=== PATIENT | male | born 1990 | race Caucasian/White ===

== ENCOUNTER → 2021-12-16 07:04 | Outpatient (CLI) | payer OTHER, MEDICAID, SELFPAY ==
[2021-12-16 08:32] LABS: Alanine Aminotransferase 43 IU/L (<50); Albumin 4.6 g/dL (3.5-5.0); Albumin Globulin Ratio 1.9 (1.0-2.8); Alkaline Phosphatase 53 U/L (38-126); Aspartate Aminotransferase 37 IU/L (17-59); BUN Creatinine Ratio 19.5 (6-22); Bilirubin Total 0.3 mg/dL (0.2-1.3); Blood Urea Nitrogen 17 mg/dL (9-20); Calcium 9.5 mg/dL (8.4-10.2); Carbon Dioxide 31 mmol/L (22-32); Chloride 103 mmol/L (98-107); Estimated Glomerular Filt Rate > 60.0 mL/min (>60); Globulin 2.4 g/dL (1.7-4.1); Glucose 103 mg/dL (70-100); HEMOLYSIS < 15 (0-50); Potassium 4.5 mmol/L (3.4-5.1); Sodium 141 mmol/L (137-145)
[2021-12-16 08:53] LABS: Vitamin D 25 Hydroxy (D3) 35.2 ng/mL (30.0-100.0)
[2021-12-16 09:00] LABS: TSH w/ Reflex to FT4 1.06 uIU/mL (0.47-4.68)
[2021-12-16 09:12] LABS: Add Manual Diff / Slide Review NO; Basophils Absolute Auto 100 /uL (0-100); Basophils Percent Auto 0.9 % (0-2); Eosinophils Absolute Auto 400 /uL (0-450); Eosinophils Percent Auto 6.2 % (2-4); Hematocrit 44.2 % (41-53); Hemoglobin 15.1 g/dL (13.5-17.5); Lymphocytes Absolute Auto 2600 /uL (1100-4500); Lymphocytes Percent Auto 36.9 % (25-40); Mean Corpuscular HGB Conc 34.2 % (30-36); Mean Corpuscular Hemoglobin 31.3 PG (26-34); Mean Corpuscular Volume 91.5 fL (80-100); Monocytes Absolute Auto 500 /uL (0-900); Monocytes Percent Auto 7.3 % (3-14); Neutrophils Absolute Auto 3400 /uL (1500-7000); Neutrophils Percent Auto 48.7 % (50-75); Platelet Count 262 X10^3/uL (150-400); Red Blood Cell Count 4.83 X10^6/uL (4.5-5.9); Red Cell Distribution Width 12.7 % (11.6-14.8)
== END ==
PROVIDERS: PCP Family Medicine; Referring Provider Family Medicine; Visit Provider Family Medicine
DX: F32.A Depression, unspecified (principal); M25.50 Pain in unspecified joint; T78.40XS Allergy, unspecified, sequela
CPT/HCPCS: 36415; 80053; 82306; 84443; 85025

== ENCOUNTER 2022-01-05 20:25 | Emergency (ER) | payer OTHER, MEDICAID, SELFPAY ==
[2022-01-05 20:30] VITALS: BP 123/79; PULSE 59; RESP 18; TEMP 36.9; O2SAT 100
[2022-01-05] MEDS: ONDANSETRON 4 MG ODT PREPACK 1 BOTTLE MISC (20:43)
[2022-01-05] MEDS: LIDOCAINE 1% W/EPI 30 ML (20:44)
--- NOTE | 2022-01-05 22:02 | ED.HEATRA ---
HPI - Head Injury General Chief complaint: Head Injury Stated complaint: head injury Time Seen by Provider: 01/05/22 20:33 Source: patient Mode of arrival: Ambulatory History of Present Illness HPI Narrative: 31-year-old male nonsmoker with history of asthma presents with significant other and a chief complaint of an accidental head injury with scalp laceration just prior to arrival. 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 He denies loss of consciousness but states he definitely was seeing stars and was close. He is nauseated but denies any vomiting. He denies any blurred vision or trouble with speech. He has no ambulation difficulties. He is not under the influence of alcohol or street drugs and takes no blood thinners. His tetanus is current, he is otherwise well and free of complaint Related Data Previous Rx's Medication Instructions Recorded epinephrine 0.3 mg/0.3 mL 0.3 mg (0.3 mL) IM Q5-15M PRN #2 ea 11/04/20 injection, auto-injector (EpiPen 2-Max) montelukast 10 mg tablet 10 mg PO BEDTIME #90 tab 03/29/21 (Singulair) albuterol sulfate 90 mcg/actuation 2 puff INHALATION QID PRN #3 07/05/21 aerosol inhaler inhalation sertraline 50 mg tablet (Zoloft) 50 mg PO DAILY #60 tab 12/17/21 Allergies Allergy/AdvReac Type Severity Reaction Status Date / Time No Known Drug Allergies Allergy Verified 03/29/21 14:21 seasonal Allergy Intermediate UR sx Uncoded 03/29/21 14:21 Review of Systems Review of Systems Narrative: GENERAL: Denies chills, fatigue, malaise, fever, sweats. HEENT: Denies sinus pain, ear pain, sore throat, difficulty swallowing, dizziness. RESPIRATORY: Denies dyspnea, cough, wheezing, hemoptysis, sputum. CARDIOVASCULAR: Denies chest pain, palpitations, orthopnea, edema, GASTROINTESTINAL: Denies nausea, vomiting, abdominal pain, diarrhea, constipation, melena. : Denies dysuria, frequency, incontinence, hematuria, urinary retention. MUSCULOSKELETAL: denies weakness, joint pain, or bony pain SKIN: See HPI NEUROLOGIC: See HPI PSYCHIATRIC: No concerning psychosocial issues. 12 point review of systems is negative except for those stated above Patient History Medical History Allergies Asthma Eczema External hemorrhoid Family History Father Asthma Social History marital status: unmarried,single household members: friend(s) lives independently: No housing: house education level: high school occupational status: employed leisure activities: exercise and fishing seatbelt use: always working smoke detector in home: Yes fire extinguisher in home: Yes carbon monox detector in home: Yes Smoking Status: Never smoker during the past year weight has: remained stable daily servings fruits/ve or more times/day Type(s) of exercise: walking and irregular exercise frequency: 3-4 times per week duration: > 90 minutes/day Smoking Status: Never smoker Exam Narrative Exam Narrative: GENERAL: [31] year old patient appears stated age. Well-developed patient, in mild distress. GCS 15 HEAD: 3 cm superficial linear laceration in the midline on top of his head with minimal active bleeding. There is no evidence of depressed skull fracture. There is no evidence of foreign body or contamination EYES: Pupils equal round and reactive. Extraocular motions intact. No scleral icterus. No injection or drainage. ENT: Nose without bleeding, purulent drainage. Throat without erythema, tonsillar hypertrophy or exudate. Airway patent. NECK: Trachea midline. Non tender CARDIOVASCULAR: Regular rate and rhythm without murmurs, gallops, or rubs. RESPIRATORY: Clear to auscultation. Breath sounds equal bilaterally. No wheezes, rales, or rhonchi. GASTROINTESTINAL: Abdomen soft, non-tender, nondistended. EXTREMITIES: No edema or joint tenderness. BACK: Nontender without deformity or crepitance. No flank tenderness. NEURO: AOx3. SKIN: No rash or erythema of visible areas Initial Vital Signs Initial Vital Signs: Vital Signs Temperature 98.4 F 01/05/22 20:30 Pulse Rate 59 L 01/05/22 20:30 Respiratory Rate 18 01/05/22 20:30 Blood Pressure 123/79 01/05/22 20:30 Pulse Oximetry 100 01/05/22 20:30 Procedures Laceration Repair Laceration 1: Site: scalp Description: linear Depth: simple, single layer Local Anesthetic: lidocaine 1% Amount of anesthesia used (mL): 4 Pre-repair: wound explored and irrigated extensively Skin layer closed with: janee Course Orders Ordered: Discontinued Medications Ondansetron HCl (Ondansetron 4 Mg Odt Prepack) 1 bottle [facility] [place] [facility] ONE Stop: 01/05/22 20:39 Last Admin: 01/05/22 20:43 Dose: 1 bottle Documented by: APURVA Vital Signs Vital signs: Vital Signs - 8 hr 01/05/22 20:30 Temperature 98.4 F Pulse Rate 59 L Respiratory Rate 18 Blood Pressure 123/79 Pulse Oximetry 100 Discharge Plan Departure Patient Disposition: Home Clinical Impression: Laceration of scalp, Concussion Instructions: Concussion, DI for Laceration Repair of the Scalp Activity Restrictions/Additional Instructions: *You have been diagnosed with [scalp laceration and mild concussion. As we discussed her history and physical exam are reassuring and there is no indication for a CT scan of your brain *What to do: *Please continue to take your regular medications as directed. [ ] New medication prescriptions sent to your pharmacy: [ ] [ ] New medication written as a paper prescription [ x] No new medications given Please keep the wound clean and dry to the best of your ability. Please monitor for signs of infection such as redness to the skin or increasing pain. Have the sutures/janee removed by your doctor in about 7 days. If you are unable to get into your doctor, we would be happy to remove the sutures/janee in that same timeframe. You have a slight concussion and will likely have a mild headache and some nausea for a few days. Avoiding highly stimulating activities and even TV or computers may be helpful in minimizing your symptoms. Avoid activities that will put you at risk for another head injury for at least a week. You can take tylenol or motrin for headache or the prescription provided for nausea/vomiting. Return for worsening or persistent symptoms *If you do not have a primary care provider please contact the [facility] Resource line at [phone]. They will ask some questions about your medical history and help get you set up with a doctor in the community. *Return to Emergency Department if you should have any new, worsening or concerning symptoms, such as [fever greater than 101 F, shaking chills, worsening pain, persistent vomiting or other bothersome symptoms] Prescriptions: No Action albuterol sulfate 90 mcg/actuation HFA aerosol inhaler 2 puff INHALATION QID PRN (Reason: shortness of breath or wheezing) Qty: 3 3RF epinephrine [EpiPen 2-Max] 0.3 mg/0.3 mL auto-injector 0.3 mg IM Q5-15M PRN (Reason: anaphylaxis) Qty: 2 0RF Rx Instructions: do not exceed 3 doses per episode montelukast [Singulair] 10 mg tablet 10 mg PO BEDTIME Qty: 90 3RF Rx Instructions: Use during allergy season sertraline [Zoloft] 50 mg tablet 50 mg PO DAILY Qty: 60 0RF Referrals: Maikol Paniagua MD [Primary Care Provider] -
== END 2022-01-05 21:10 | disposition home or self-care (01) ==
PROVIDERS: Emergency Provider Emergency Medicine; PCP Family Medicine
DX: S01.01XA Laceration without foreign body of scalp, initial encounter (principal); S06.0X0A Concussion without loss of consciousness, initial encounter; W22.8XXA Striking against or struck by other objects, initial encounter
CPT/HCPCS: 12001; 99281; 99283

== ENCOUNTER → 2024-08-15 16:03 | Outpatient (CLI) | payer OTHER, MEDICAID, SELFPAY ==
[2024-08-15 16:58] LABS: Add Manual Diff / Slide Review NO; Basophils Absolute Auto 100 /uL (0-100); Basophils Percent Auto 1.2 % (0-2); Eosinophils Absolute Auto 500 /uL (0-450); Eosinophils Percent Auto 6.3 % (2-4); Hematocrit 44.8 % (41-53); Hemoglobin 15.2 g/dL (13.5-17.5); Lymphocytes Absolute Auto 2100 /uL (1100-4500); Lymphocytes Percent Auto 27.9 % (25-40); Mean Corpuscular Hemoglobin 31.7 PG (26-34); Mean Corpuscular Volume 93.2 fL (80-100); Monocytes Absolute Auto 600 /uL (0-900); Monocytes Percent Auto 7.8 % (3-14); Neutrophils Absolute Auto 4300 /uL (1500-7000); Neutrophils Percent Auto 56.8 % (50-75); Platelet Count 256 X10^3/uL (150-400); Red Cell Distribution Width 12.8 % (11.6-14.8); White Blood Cell Count 7.5 X10^3/uL (4.5-11.0)
[2024-08-15 17:13] LABS: Alanine Aminotransferase 30 IU/L (<50); Albumin 4.8 g/dL (3.5-5.0); Albumin Globulin Ratio 1.8 (1.0-2.8); Alkaline Phosphatase 49 U/L (38-126); Aspartate Aminotransferase 33 IU/L (17-59); BUN Creatinine Ratio 17.3 (6-22); Bilirubin Total 0.5 mg/dL (0.2-1.3); Blood Urea Nitrogen 14 mg/dL (9-20); Calcium 9.8 mg/dL (8.4-10.2); Carbon Dioxide 29 mmol/L (22-32); Chloride 103 mmol/L (98-107); Cholesterol 160 mg/dL (140-199); Estimated Glomerular Filt Rate > 60 mL/min (>60); Globulin 2.6 g/dL (1.7-4.1); Glucose 77 mg/dL (70-100); HDL Cholesterol 45 mg/dL (40-60); HEMOLYSIS < 15 (0-50); LDL Cholesterol Calculated 100 mg/dL (<100); Potassium 4.5 mmol/L (3.4-5.1); Sodium 140 mmol/L (137-145); Total Protein 7.4 g/dL (6.3-8.2); Triglycerides 73 mg/dL (35-150)
== END ==
PROVIDERS: PCP Family Medicine; Referring Provider Family Medicine; Visit Provider Family Medicine
DX: J45.909 Unspecified asthma, uncomplicated (principal); T78.40XA Allergy, unspecified, initial encounter; F41.8 Other specified anxiety disorders
CPT/HCPCS: 36415; 80053; 80061; 84443; 85025

== ENCOUNTER → 2025-02-26 08:32 | Outpatient (CLI) | payer OTHER, SELFPAY ==
--- NOTE | 2025-02-26 08:33 | DI.US.S_ITS ---
PROCEDURE: US HERNIA INDICATIONS: Bilateral inguinal pain. Right indirect hernia. TECHNIQUE: Real-time focused scanning was performed of the inguinal region, with image documentation. COMPARISON: None. FINDINGS: No inguinal hernia identified. No inguinal lymphadenopathy, soft tissue fluid collections or masses. IMPRESSION: No inguinal hernias identified. Dictated by: Brigida Colmenares MD, PhD on 02/26/2025 at 12:22 Approved by: Brigida Colmenares MD, PhD on 02/26/2025 at 12:23
--- NOTE | 2025-02-26 09:30 | DI.US.S_ITS ---
PROCEDURE: US SCROTUM INDICATIONS: RIGHT TESTICLE PAIN TECHNIQUE: Real-time scanning was performed of the scrotum and testicles, with image documentation. Color and pulse Doppler interrogation was performed of both testicles. COMPARISON: None. FINDINGS: Right: Testicle is normal in size at 4.6 x 3.5 x 2.2 cm, and homogenous in echotexture. Epididymis is normal in overall size and morphology. Mild complex hydrocele. No varicocele. Complex fluid collection is present in the superior scrotum it area palpable concern. Overlying scrotal skin is normal in thickness. Left: Testicle is normal in size at 4.6 x 3.2 x 2.2 cm, and homogeneous in echotexture. Epididymis is normal in overall size and morphology. No hydrocele. Prominent venous structures most suggestive of varicocele. Overlying scrotal skin is normal in thickness. Doppler: Color and pulse Doppler demonstrate normal and symmetric arterial flow in both testicles. IMPRESSION: Complex right hydrocele. At area of concern within the right scrotum, there is a 1.3 x 0.9 cm focus of echogenicity separate from the testicle. There is mild peripheral vascularity. Appearance is nonspecific. This could be postoperative in nature. However, Other etiologies cannot be excluded. Dictated by: Elda Haji M.D. on 02/26/2025 at 11:58 Approved by: Elda Haji M.D. on 02/26/2025 at 12:00
== END ==
LOC: US 08:32
PROVIDERS: PCP Family Medicine; Referring Provider Chiropractor; Visit Provider Chiropractor
DX: K40.90 Unilateral inguinal hernia, without obstruction or gangrene, not specified as recurrent (principal); N43.3 Hydrocele, unspecified; N50.811 Right testicular pain
CPT/HCPCS: 76705; 76870; 93975